=== PATIENT | male | born 2000 | race Caucasian/White ===

== ENCOUNTER 2019-10-09 04:13 | Inpatient (IN) | payer SELFPAY ==
[~2019-10-09] VITALS: Ht 167.6 cm; Wt 90.7 kg
[2019-10-09 04:19] VITALS: BP 96/51
[2019-10-09] MEDS ORDERED: NACL 0.9% 1,000 ML IV SCH ×2 (04:38→06:42)
[2019-10-09] MEDS ORDERED: ONDANSETRON 4 MG/2 ML VIAL IVP ONE (04:40)
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
--- NOTE | 2019-10-09 05:06 | NUR ---
EKG PERFORMED AT BEDSIDE
[2019-10-09 05:52] LABS: BASOPHILS % (AUTO) 0.2 % (0.0-2.0); EOSINOPHILS # (AUTO) 0.1 K/uL (0-0.4); EOSINOPHILS % (AUTO) 0.6 % (0.0-4.0); HEMATOCRIT 42.3 % (36-52); HEMOGLOBIN 14.2 g/dL (12.0-18.0); LYMPHOCYTES # (AUTO) 1.9 K/uL (2.0-11.5); LYMPHOCYTES % (AUTO) 21.2 % (20.5-51.1); MEAN CORPUSCULAR HEMOGLOBIN 30 pg (27-31); MEAN CORPUSCULAR HGB CONC 34 g/dL (33-37); MEAN CORPUSCULAR VOLUME 89.4 fL (80-94); MONOCYTES # (AUTO) 0.3 K/uL (0.8-1.0); MONOCYTES % (AUTO) 3.3 % (1.7-9.3); NEUTROPHILS # (AUTO) 6.6 K/uL (1.8-7.7); NEUTROPHILS % (AUTO) 74.7 % (42.2-75.2); PLATELET COUNT (AUTO) 289 K/uL (140-450); RED BLOOD CELL COUNT(AUTO) 4.74 MIL/uL (4.20-6.10); RED CELL DISTRIBUTION WIDTH 12.3 % (11.6-13.7); WHITE BLOOD COUNT (AUTO) 8.8 K/uL (4.5-11.0)
[2019-10-09] MEDS ORDERED: NACL 0.9% 1,000 ML IV ONE (06:05)
[2019-10-09 06:10] LABS: ALBUMIN 3.5 g/dL (3.4-5.0); ANION GAP 14.9 (8-16); CARBON DIOXIDE 25.2 mmol/L (21-32); CREATININE 0.8 mg/dL (0.6-1.3); POTASSIUM 3.1 mmol/L (3.5-5.1); TOTAL BILIRUBIN 0.1 mg/dL (0.0-1.0)
[2019-10-09 06:21] LABS: CREATINE KINASE MB 0.4 ng/mL (0-3.6)
[2019-10-09 06:42] LABS: BILIRUBIN,URINE NEGATIVE (NEGATIVE); BLOOD, URINE TRACE-I (NEGATIVE); COLOR,URINE YELLOW (YELLOW); LEUKOCYTE ESTERASE ,URINE NEGATIVE (NEGATIVE); NITRITE, URINE NEGATIVE (NEGATIVE); UGLUCOSE NEGATIVE (NEGATIVE)
[2019-10-09 06:45] LABS: APPEARANCE,URINE SLIGHTLY HAZY (CLEAR)
[2019-10-09] MEDS ORDERED: ONDANSETRON 4 MG/2 ML VIAL IVP PRN (06:45)
[2019-10-09] MEDS ORDERED: ACETAMINOPHEN 325 MG TAB PO PRN (06:45)
[2019-10-09] MEDS ORDERED: LORazepam 2 MG/ML VIAL IVP PRN (06:45)
[2019-10-09 07:00] LABS: BARBITURATE, URINE NEG. ng/ml (NEG <=200); BENZODIAZEPINE, URINE NEG. ng/mL (NEG <=200); CANNABINOID, URINE NEG. ng/mL (NEG <=50); COCAINE, URINE POS. ng/mL (NEG <=300); OPIATE, URINE NEG. ng/mL (NEG <=2000); PHENCYCLIDINE SCREEN,URINE NEG. ng/mL (NEG <=25)
[2019-10-09 07:05] LABS: RBC,URINE 0-5 /HPF (0-5); WBC,URINE 0-5 /HPF (0-5)
[2019-10-09 07:06] LABS: URINE AMORPHOUS URATE 1+ /HPF (None Seen)
--- NOTE | 2019-10-09 07:27 | NUR ---
OBTAINED REPORT FROM PAYER SPECIALIST RN ; PT TO STAY IN ER FOR FURTHER OBSERVATION ON BP. GOAL PER ERMD TO MAINTAIN SBP >90. PT CURRENTLY ON REBREATHER MASK 10LPM, RECEIVING FLUIDS.
--- NOTE | 2019-10-09 07:30 | NUR ---
XRAY AT BEDSIDE
--- NOTE | 2019-10-09 07:57 | NUR ---
RECEIVED REPORT FROM ER NURSE. PT HAS NO SIGNS OF DISTRESS. PT HAS LEFT AC 20G SALINE LOCK. PT IS ON FULL CODE.
--- NOTE | 2019-10-09 07:57 | NUR ---
Patient will be admitted to care of [facility]. Admited to MS. Will go to room 121A. Belongings list completed. Report to DAVID GOINS.
[2019-10-09] MEDS ORDERED: MULTIVITAMIN-12 10 ML, THIAMINE 100 MG, MAGNESIUM SULFATE 50% 2,000 MG, FOLIC ACID 1 MG... IV ONE ×5 (08:00)
[2019-10-09 08:03] VITALS: BP 109/43
--- NOTE | 2019-10-09 08:15 | NUR ---
DR. BUNCH TALKED TO THE PT AND PT DECIDED TO AMA. AMA FORM SIGNED.
[2019-10-09] MEDS ORDERED: POTASSIUM CHLORIDE 10 MEQ TABER PO SCH (08:19)
--- NOTE | 2019-10-09 08:25 | NUR ---
MEDS GIVEN TO PT ORDERED. PT IS STABLE.
[2019-10-09] MEDS ORDERED: DOCUSATE SODIUM 100 MG GELCAP PO SCH (09:00)
[2019-10-09 10:03] LABS: FREE T4 (FREE THYROXINE) 1.25 ng/dL (0.76-1.46); MAGNESIUM 1.8 mg/dL (1.8-2.4); PHOSPHORUS 3.8 mg/dL (2.5-4.9); THYROID STIMULATING HORMONE 1.87 uIU/mL (0.34-3.74)
[2019-10-09] MEDS ORDERED: LORazepam 1 MG TAB PO SCH (13:00)
[2019-10-10] MEDS ORDERED: POTASSIUM CHLORIDE 40 MEQ in NACL 0.9% 1,000 ML IV SCH (06:42)
[2019-10-10] MEDS ORDERED: THIAMINE 100 MG TAB PO SCH (09:00)
[2019-10-10] MEDS ORDERED: FOLIC ACID 1 MG TAB PO SCH (09:00)
[2019-10-10] MEDS ORDERED: MULTIVITAMIN 1 TAB PO SCH (09:00)
--- NOTE | 2019-10-11 14:07 | NUR ---
Late entry. Confirmed with RN that 0.9 NS IV completed at 0530
== END 2019-10-09 08:45 | disposition left against medical advice (07) | DRG 917 ==
LOC: EDBD 04:13 → MED 04:13 → MTU 06:42
PROVIDERS: ADMIT General Practice; ATTEND General Practice
DX: T40.5X1A Poisoning by cocaine, accidental (unintentional), initial encounter (principal); G92 Toxic encephalopathy; E87.0 Hyperosmolality and hypernatremia; E87.5 Hyperkalemia; T51.91XA Toxic effect of unspecified alcohol, accidental (unintentional), initial encounter; Y92.89 Other specified places as the place of occurrence of the external cause; F17.210 Nicotine dependence, cigarettes, uncomplicated
CPT/HCPCS: 36415; 71045; 80053; 80305; 81001; 82150; 82550; 82553; 83036; 83690; 83735; 83880; 84100; 84439; 84443; 84484; 85025; 85610; 85730; 93005; 96361; 96374; 99291; A9153; C1758; G0480; G0482; J2405; J3411; J3475; J3490; J7030

== ENCOUNTER 2020-01-29 06:45 | Emergency (ER) | payer OTHER ==
[~2020-01-29] VITALS: Ht 165.1 cm; Wt 78.9 kg
[2020-01-29 06:46] VITALS: BP 141/69
--- NOTE | 2020-01-29 06:47 | NUR ---
PT BIB BY ANG[facility] TO [facility]
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
[2020-01-29] MEDS ORDERED: BACITRACIN OINT 500 UNITS/GM PKT TP ONE (07:10)
[2020-01-29 07:33] VITALS: BP 135/62
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
== END 2020-01-29 07:33 ==
LOC: MED 06:45
DX: S50.811A Abrasion of right forearm, initial encounter (principal); Z02.89 Encounter for other administrative examinations; V49.69XA Unspecified car occupant injured in collision with other motor vehicles in traffic accident, initial encounter; Y93.89 Activity, other specified; Y92.89 Other specified places as the place of occurrence of the external cause; Y99.8 Other external cause status
CPT/HCPCS: 99283